=== PATIENT | male | born 1955 | race Caucasian/White ===

== ENCOUNTER 2021-01-18 14:15 | Emergency (ER) | payer OTHER ==
[~2021-01-18] VITALS: Ht 188 cm; Wt 113.6 kg
[2021-01-18 14:27] VITALS: BP 175/78
[2021-01-18] MEDS ORDERED: ALBU8HFA PO (17:13)
[2021-01-18] MEDS ORDERED: BENZ-16 PO (17:13)
== END 2021-01-18 17:37 | disposition home or self-care (01) ==
LOC: ER 14:17
DX: J06.9 Acute upper respiratory infection, unspecified (principal); Z20.822 Contact with and (suspected) exposure to COVID-19; Z79.899 Other long term (current) drug therapy
CPT/HCPCS: 87635; 99283; C9803